=== PATIENT | male | born 1985 | race Caucasian/White ===

== ENCOUNTER → 2022-11-05 23:16 | Outpatient (CLI) | payer MEDICAID, SELFPAY ==
[2022-11-05 19:40] LABS: Basophils % 0.4 % (0.1-2.0); Eosinophils # 0.2 K/mm3 (0.0-0.4); Eosinophils % 4.6 % (0.1-12.0); Hematocrit 40.5 % (42.0-52.0); Hemoglobin 12.6 g/dL (14.1-18.0); Lymphocytes # 2.3 K/mm3 (0.7-4.5); Lymphocytes % 45.2 % (10-50); Mean Corpuscular HGB Conc 31.2 g/dL (31.8-35.4); Mean Corpuscular Hemoglobin 29.9 pg (27.0-31.2); Mean Corpuscular Volume 95.9 fl (80-94); Mean Platelet Volume 9.2 fl (7.4-10.4); Monocytes # 0.2 K/mm3 (0.1-1.0); Monocytes % 4.5 % (1.7-9.3); Neutrophils # 2.3 K/mm3 (1.8-7.8); Neutrophils % 45.4 % (37.0-80.0); Platelet Count 231 K/mm3 (142-424); Red Blood Count 4.22 M/mm3 (4.60-6.20); White Blood Count 5.2 K/mm3 (4.8-10.8)
[2022-11-05 19:55] LABS: Alanine Aminotransferase 68 U/L (12-78); Albumin Level 4.2 g/dl (3.5-5.0); Alkaline Phosphatase 67 U/L (38-126); Anion Gap 14.6 mEq/L (5-15); Aspartate Amino Transferase 73 U/L (17-59); Bilirubin,Total 0.6 mg/dl (0.2-1.3); Blood Urea Nitrogen 11 mg/dl (9-20); Calcium 8.7 mg/dl (8.4-10.2); Carbon Dioxide 30 mmol/L (22.0-30.0); Chloride 100 mmol/L (98-107); Chol/HDL Ratio 3.3 (1-3.5); Cholesterol 120 mg/dl (140-200); Estimated Glomerular Filt Rate 152 ml/min (>60); GFR (African American) 183 ML/MIN (>60); Globulin 4.1 g/dL (1.3-3.2); Glucose 106 mg/dl (74-100); HDL Cholesterol 36 mg/dl (40-60); Potassium 3.6 mmoL/L (3.5-5.1); Sodium 141 mmol/L (136-145); Total Protein,Serum 8.3 g/dl (6.3-8.2); Triglycerides 90 mg/dl (30-150); VLDL Cholesterol 18 mg/dL (0-40)
[2022-11-05 20:07] LABS: Direct LDL Cholesterol 64.84 mg/dL (100-129)
[2022-11-05 20:14] LABS: Free T4 (Free Thyroxine) 1.12 ng/dl (0.78-2.19)
[2022-11-05 20:16] LABS: 25-OH Vitamin D, Total 48.3 ng/mL (30-100)
[2022-11-05 20:29] LABS: Thyroid Stimulating Hormone 1.51 uIU/mL (0.465-4.68)
== END ==
PROVIDERS: PCP Emergency Medicine; Visit Provider Emergency Medicine
DX: R53.83 Other fatigue (principal); F41.9 Anxiety disorder, unspecified
CPT/HCPCS: 80053; 80061; 82306; 84439; 84443; 85025

== ENCOUNTER → 2023-03-20 15:43 | Outpatient (CLI) | payer MEDICAID, SELFPAY ==
[2023-03-20 15:56] LABS: Barbiturates Screen,Urine Negative ng/ml (<200); Benzodiazepines Screen,Urine Negative ng/ml (<200)
[2023-03-20 15:57] LABS: Cannabinoid Screen,Urine Positive ng/ml (<50)
[2023-03-20 15:58] LABS: Cocaine Screen,Urine Negative ng/ml (<300); Methadone Screen,Urine Positive ng/ml (<300)
[2023-03-20 15:59] LABS: Opiate Screen,Urine Negative ng/ml (<300)
[2023-03-20 16:00] LABS: Phencyclidine Screen,Urine Negative ng/ml (<25)
[2023-03-25 10:49] LABS: Amphetamine Positive (.); Amphetamine (GC/MS) 980 ng/mL (Cutoff=500); Amphetamines Positive (.); Methamphetamine Positive (.); Methamphetamine (GC/MS) >3000 ng/mL (Cutoff=500)
== END ==
PROVIDERS: PCP Emergency Medicine; Visit Provider Emergency Medicine
DX: F41.9 Anxiety disorder, unspecified (principal)
CPT/HCPCS: 80305; 80324

== ENCOUNTER 2023-09-05 18:00 | Outpatient (CLI) | payer MEDICAID, SELFPAY ==
[2023-09-05 18:33] LABS: Basophils # 0.1 K/mm3 (0-0.2); Basophils % 1.1 % (0.1-2.0); Eosinophils # 0.3 K/mm3 (0.0-0.4); Eosinophils % 5.9 % (0.1-12.0); Hematocrit 45.6 % (42.0-52.0); Hemoglobin 14.4 g/dL (14.1-18.0); Lymphocytes % 44.9 % (10-50); Mean Corpuscular HGB Conc 31.7 g/dL (31.8-35.4); Mean Corpuscular Hemoglobin 31.2 pg (27.0-31.2); Mean Corpuscular Volume 98.3 fl (80-94); Mean Platelet Volume 10.3 fl (7.4-10.4); Monocytes # 0.4 K/mm3 (0.1-1.0); Monocytes % 7.8 % (1.7-9.3); Neutrophils # 1.8 K/mm3 (1.8-7.8); Neutrophils % 40.3 % (37.0-80.0); Platelet Count 194 K/mm3 (142-424); Red Blood Count 4.63 M/mm3 (4.60-6.20); White Blood Count 4.5 K/mm3 (4.8-10.8)
[2023-09-05 18:37] LABS: Alanine Aminotransferase 119 U/L (12-78); Albumin Level 4.6 g/dl (3.5-5.0); Albumin/Globulin Ratio 1.2 (1.1-1.8); Alkaline Phosphatase 55 U/L (38-126); Anion Gap 12.1 mEq/L (5-15); Aspartate Amino Transferase 97 U/L (17-59); Bilirubin,Total 0.4 mg/dl (0.2-1.3); Blood Urea Nitrogen 11 mg/dl (9-20); Calcium 9.9 mg/dl (8.4-10.2); Carbon Dioxide 32 mmol/L (22.0-30.0); Chloride 102 mmol/L (98-107); Estimated Glomerular Filt Rate 152 ml/min (>60); GFR (African American) 183 ML/MIN (>60); Glucose 91 mg/dl (74-100); Potassium 4.1 mmoL/L (3.5-5.1); Sodium 142 mmol/L (136-145); Total Protein,Serum 8.6 g/dl (6.3-8.2)
[2023-09-05 18:44] LABS: Hemoglobin A1C 5.6 % (4.0-6.0)
[2023-09-07 11:17] LABS: HIV Screen 4th Generation wRfx Non Reactive (Non Reactive)
[2023-09-08 20:08] LABS: HCV Genotype Charge YES; Hepatitis C Genotype 1a (.)
[2023-09-10 09:53] LABS: Hep A Ab, Total Negative
[2023-09-10 09:54] LABS: Hep B Core Ab, Total Positive; Hep B Surface Ab, Qual Reactive; Hepatitis B Surface Antigen Negative
[2023-09-10 09:55] LABS: Fibrosis Score 0.32; Fibrosis Stage F1-F2; Hepatitis C Antibody Reactive; Necroinflammat Activity Score 0.61
[2023-09-10 09:56] LABS: Alpha 2-Macroglobulins, Qn 422; Apolipoprotein A-1 165; Haptoglobin 109; Necroinflammat Activity Grade A2-A3
[2023-09-10 09:57] LABS: ALT (SGPT) P5P 108; Bilirubin, Total 0.2; GGT 49
== END 2023-09-05 23:59 ==
LOC: LAB.DROPOF 09-06 09:07
PROVIDERS: PCP Internal Medicine; Visit Provider Internal Medicine
DX: R53.83 Other fatigue; R74.01 Elevation of levels of liver transaminase levels; Z11.4 Encounter for screening for human immunodeficiency virus [HIV]; B19.20 Unspecified viral hepatitis C without hepatic coma
CPT/HCPCS: 80053; 81596; 83036; 85025; 86703; 86704; 86706; 86708; 87340; 87380; 87522; 87902; G0432